=== PATIENT | male | born 1955 | race Caucasian/White ===

== ENCOUNTER 2017-01-24 14:00 | Emergency (ER) | payer BC, OTHER ==
[2017-01-24 14:09] VITALS: BP 140/90; PULSE 72; RESP 18; TEMP 98; O2SAT 99
--- NOTE | 2017-01-24 14:46 | ED PDOC ---
HPI: General Adult Time Seen by Provider: 01/24/17 14:27 Chief Complaint (Nursing): Weakness/Neurological Deficit Chief Complaint (Provider): Left Shoulder Pain History Per: Patient History/Exam Limitations: no limitations Onset/Duration Of Symptoms: Days (x1) Additional Complaint(s): Jose M Mcadams is a 61 year old male with a history of three CVAs that presents to the ED with a chief complaint of achy left shoulder pain that radiated across his upper chest and his upper back that began one day ago. Patient reports that his pain is worsened bandar moving his left arm, and denies any SOB, trauma, injury, weakness, or numbness of the extremity. Past Medical History Reviewed: Historical Data, Nursing Documentation, Vital Signs Vital Signs: Last Vital Signs Temp 98 F 01/24/17 14:06 Pulse 72 01/24/17 14:06 Resp 18 01/24/17 14:06 BP 140/90 01/24/17 14:06 Pulse Ox 99 01/24/17 14:51 - Medical History PMH: CVA (x3), Deep Vein Thrombosis, HTN Denies: Chronic Kidney Disease - Surgical History Surgical History: Tonsillectomy - Family History Family History: States: Unknown Family Hx - Home Medications Home Medications: Ambulatory Orders Medication Instructions Recorded Amlodipine Besylate [Norvasc] 5 mg PO DAILY 03/22/15 Atorvastatin [Lipitor] 20 mg PO DAILY 03/22/15 Clopidogrel [Plavix] 75 mg PO DAILY 03/22/15 Lisinopril/Hydrochlorothiazide 1 tab PO DAILY 03/22/15 [Lisinopril-Hctz 20-12.5 mg Tab] Aspirin/Dipyridamole [Aggrenox 1 ea PO BID #0 cap 03/25/15 25-200 mg] Metoprolol Succinate [Toprol XL] 50 mg PO DAILY #0 tab 03/25/15 Naproxen [Naprosyn] 500 mg PO Q12H #20 tab 01/24/17 - Allergies Allergies/Adverse Reactions: Allergies Allergy/AdvReac Type Severity Reaction Status Date / Time No Known Allergies Allergy Verified 01/24/17 14:06 Review of Systems Constitutional: Negative for: Weakness, Other (denies trauma/injury ) Cardiovascular: Positive for: Chest Pain (upper chest pain due to radiating left arm pain) Respiratory: Negative for: Shortness of Breath Musculoskeletal: Positive for: Shoulder Pain (left shoulder pain), Back Pain ( upper back pain due to radiating left shoulder pain) Neurological: Negative for: Weakness, Numbness Physical Exam - Reviewed Nursing Documentation Reviewed: Yes Vital Signs Reviewed: Yes - Physical Exam Appears: Positive for: Non-toxic, No Acute Distress Head Exam: Positive for: ATRAUMATIC, NORMOCEPHALIC Skin: Positive for: Normal Color, Warm Cardiovascular/Chest: Positive for: Regular Rate, Rhythm. Negative for: Murmur Respiratory: Positive for: Normal Breath Sounds. Negative for: Wheezing Extremity: Negative for: Normal ROM (pain on raising left arm, pain to palpation posteriorly of left arm.), Deformity Neurologic/Psych: Positive for: Alert, Oriented. Negative for: Motor/Sensory Deficits - ECG O2 Sat by Pulse Oximetry: 99 (RA) Pulse Ox Interpretation: Normal Medical Decision Making Medical Decision Making: Impression: Left Shoulder Pain Plan: * EKG * X-Ray Left Shoulder * Reevaluation Scribe Attestation: Documented by Alie Zambrano, acting as a scribe for Kirill Becerra MD. Provider Scribe Attestation: All medical record entries made by the Scribe were at my direction and personally dictated by me. I have reviewed the chart and agree that the record accurately reflects my personal performance of the history, physical exam, medical decision making, and the department course for this patient. I have also personally directed, reviewed, and agree with the discharge instructions and disposition. Disposition - Clinical Impression Clinical Impression: Left shoulder strain - Patient ED Disposition Is Patient to be Admitted: No Counseled Patient/Family Regarding: Studies Performed, Diagnosis, Need For Followup, Rx Given - Disposition Referrals: Danny Everett MD [Family Provider] - Disposition: Routine/Home Disposition Time: 16:18 Condition: FAIR Prescriptions: Naproxen [Naprosyn] 500 mg PO Q12H #20 tab Instructions: Shoulder Pain (ED)
--- NOTE | 2017-01-24 15:15 | CARD ---
APPROVED REPORT EKG Measurement Heart [id number] <Conclusion> Normal sinus rhythm Left axis deviation Abnormal ECG
--- NOTE | 2017-01-24 15:37 | RAD ---
PROCEDURE: Radiographs of the Left Shoulder HISTORY: pain No antecedent history of trauma provided. COMPARISON: No prior. FINDINGS: BONES: Normal. No fracture. JOINTS: Normal. Glenohumeral and acromioclavicular joints preserved. No osteoarthritis. SOFT TISSUES: Normal. OTHER FINDINGS: None. IMPRESSION: Unremarkable radiographs of the left shoulder.
== END 2017-01-24 16:24 | disposition home or self-care (01) ==
LOC: H.ER 14:00
DX: M25.512 Pain in left shoulder (principal); Z86.73 Personal history of transient ischemic attack (TIA), and cerebral infarction without residual deficits; I10 Essential (primary) hypertension; Z86.718 Personal history of other venous thrombosis and embolism; Z79.01 Long term (current) use of anticoagulants